=== PATIENT | female | born 1990 | race Hispanic/Latino ===

== ENCOUNTER 2021-07-30 08:00 | Outpatient (CLI) | payer OTHER | END 2021-07-30 08:01 | disposition home or self-care (01) | LOC: CSHLAB 08:00 | PROVIDERS: ATTEND Family Medicine | DX: Z20.822 Contact with and (suspected) exposure to COVID-19 (principal); O26.619 Liver and biliary tract disorders in pregnancy, unspecified trimester; K83.1 Obstruction of bile duct | CPT/HCPCS: U0003; U0005 ==

== ENCOUNTER 2021-08-03 18:00 | Inpatient (IN) | payer MEDICAID, OTHER, SELFPAY ==
[2021-08-04] MEDS ORDERED: Promethazine HCl 25 MG/ML VIAL IM PRN (04:05)
[2021-08-04] MEDS ORDERED: Ondansetron PF 4 MG/2 ML Vial IVP PRN (04:05)
[2021-08-04] MEDS ORDERED: Lidocaine 1% (PF) 30 ML VIAL SC PRN (04:05)
[2021-08-04] MEDS ORDERED: hydrALAZINE 20 MG/ML VIAL SLOW IVP PRN ×2 (04:05→08:45)
[2021-08-04 04:23] VITALS: BMI 25.4
[2021-08-04 04:47] LABS: Hemoglobin 11.9 g/dL (12.0-15.5); Mean Corpuscular Hemoglobin 30.1 pg (27.0-33.0); Mean Corpuscular Volume 88.6 fl (81.6-98.3); Mean Platelet Volume 10.3 fl (7.4-10.4); Platelet Count 237 10x3/uL (150-450); RBC Distribution Width 13.7 % (11.5-14.5); Red Blood Cell (RBC) Count 3.95 10x6/uL (3.90-5.03); White Blood Cell (WBC) Count 4.1 10x3/uL (3.5-10.5)
[2021-08-04] MEDS: Lactated Ringer's 1,000 ML IV SCH ×2 (05:00→18:40)
[2021-08-04] MEDS ORDERED: NS w/ Oxytocin 30 units 500 ML IV SCH ×2 (05:00)
[2021-08-04 05:13] LABS: Free T4 (Free Thyroxine) 0.63 ng/dL (0.70-1.48); HIV (1/2) Antibody/Antigen Non-Reactive (NonReactive); HIV 1/2 INDEX 0.06 S/CO (<1.00); Hep B Surf Ag Non-Reactive S/CO (NonReactive); Thyroid Stimulating Hormone 43.6505 uIU/mL (0.35-4.94)
[2021-08-04 05:19] LABS: Syphilis Antibody Nonreactive (Nonreactive); Syphilis Antibody Index 0.04 S/CO (<1.00 Non-Reactive)
[2021-08-04 05:34] LABS: HBSAg Index 0.14 S/CO (0-0.99)
[2021-08-04] MEDS ORDERED: Methylergonovine 0.2 MG/ML VIAL ONE (08:06)
[2021-08-04] MEDS ORDERED: Benzocaine-Menthol 82.5 ML CAN TOP PRN (08:45)
[2021-08-04] MEDS ORDERED: Milk Of Magnesia 30 ML UDCUP PO PRN (08:45)
[2021-08-04] MEDS ORDERED: Preparation H Ointment 28 GM TUBE PR PRN (08:45)
[2021-08-04] MEDS ORDERED: diphenhydrAMINE 25 MG CAP PO PRN (08:45)
[2021-08-04] MEDS ORDERED: Boostrix 0.5 ML (Tdap) VIAL IM ONE (08:45)
[2021-08-04] MEDS ORDERED: Bisacodyl 10 MG SUPP PR PRN (08:45)
[2021-08-04] MEDS: Misoprostol 200 MCG TAB ONE (08:56)
[2021-08-04] MEDS ORDERED: Misoprostol 200 MCG TAB VAG PRN (09:03)
[2021-08-04] MEDS ORDERED: Methylergonovine 0.2 MG/ML VIAL IM PRN (09:03)
[2021-08-04] MEDS ORDERED: Ibuprofen 800 MG TAB PO SCH (10:30)
[2021-08-04] MEDS: Docusate 100 MG CAP PO SCH ×2 (11:25→21:00)
[2021-08-04] MEDS ORDERED: Misoprostol 200 MCG TAB PR PRN (11:43)
[2021-08-04] MEDS ORDERED: Misoprostol 200 MCG TAB PR SCH (11:45)
[2021-08-04] MEDS: Acetaminophen 500 MG TAB PO SCH ×2 (12:15→18:44)
[2021-08-04] MEDS ORDERED: Levothyroxine Sodium 50 MCG TAB PO SCH (12:30)
[2021-08-04] MEDS: Ferrous Sulfate 325 MG TAB PO SCH (18:40)
[2021-08-04] MEDS: Ibuprofen 800 MG TAB PO SCH (18:45)
[2021-08-04] MEDS ORDERED: Acetaminophen 500 MG TAB PO SCH (20:30)
[2021-08-05] MEDS: Acetaminophen 500 MG TAB PO SCH ×3 (05:24→11:28)
[2021-08-05] MEDS: Ibuprofen 800 MG TAB PO SCH ×2 (05:24→11:29)
[2021-08-05 05:53] LABS: ALT (SGPT) 18 U/L (8-55); AST (SGOT) 26 U/L (5-34); Albumin 2.8 g/dL (3.5-5.0); Alkaline Phosphatase 154 U/L (40-110); Anion Gap 14 mmol/L (10-20); BUN (Urea Nitrogen) 8 mg/dL (7.0-18.7); Bilirubin, Total 0.2 mg/dL (0.2-1.2); Calc. Creatinine Clearance 114 mL/min (70-130); Calcium 8.1 mg/dL (7.8-10.44); Carbon Dioxide 21 mmol/L (22-29); Chloride 107 mmol/L (98-107); Globulin 3.5 g/dL (2.4-3.5); Glucose 87 mg/dL (70-105); Potassium 3.7 mmol/L (3.5-5.1); Protein, Total 6.3 g/dL (6.0-8.3); Sodium 138 mmol/L (136-145)
[2021-08-05] MEDS ORDERED: Levothyroxine Sodium 50 MCG TAB PO SCH ×2 (06:00→08:00)
[2021-08-05] MEDS: Lactated Ringer's 1,000 ML IV SCH (07:30)
[2021-08-05 07:58] VITALS: BP 103/68; TEMP 97.8
[2021-08-05] MEDS: Ferrous Sulfate 325 MG TAB PO SCH (08:22)
[2021-08-05] MEDS: Docusate 100 MG CAP PO SCH (08:27)
[2021-08-05 11:49] LABS: Hemoglobin 9.4 g/dL (12.0-15.5)
[2021-08-06] MEDS ORDERED: Levothyroxine Sodium 112 MCG TAB PO SCH (06:00)
== END 2021-08-05 11:50 | disposition home or self-care (01) | DRG 805 ==
LOC: CSHLD 08-04 01:41 → CSHPP 08-04 11:16
PROVIDERS: ADMIT Family Medicine; ATTEND Family Medicine
PROC: 10E0XZZ Delivery of Products of Conception, External Approach (ICD-10-PCS; principal; 2021-08-04)
PROC: 0HQ9XZZ Repair Perineum Skin, External Approach (ICD-10-PCS; 2021-08-04)
DX: O26.62 Liver and biliary tract disorders in childbirth (principal); K83.1 Obstruction of bile duct; Z37.0 Single live birth; Z3A.37 37 weeks gestation of pregnancy; D64.9 Anemia, unspecified; O99.02 Anemia complicating childbirth; O70.0 First degree perineal laceration during delivery; E89.0 Postprocedural hypothyroidism; O99.284 Endocrine, nutritional and metabolic diseases complicating childbirth; Z86.16 Personal history of COVID-19; Z79.890 Hormone replacement therapy; Z79.899 Other long term (current) drug therapy; Z85.850 Personal history of malignant neoplasm of thyroid
CPT/HCPCS: 36415; 80053; 82310; 84439; 84443; 85014; 85018; 85027; 86780; 86850; 86900; 86901; 87340; 87389; J2001; J2210; J2590; J7120